=== PATIENT | male | born 1945 | race Caucasian/White ===

== ENCOUNTER → 2016-12-01 | Outpatient (CLI) | payer MEDICARE, OTHER | END | disposition home or self-care (01) | LOC: RAD.S 11-30 09:30 | DX: D58.2 Other hemoglobinopathies (principal); D75.1 Secondary polycythemia; K80.20 Calculus of gallbladder without cholecystitis without obstruction; K76.0 Fatty (change of) liver, not elsewhere classified; N28.1 Cyst of kidney, acquired; N20.0 Calculus of kidney; R93.422 Abnormal radiologic findings on diagnostic imaging of left kidney ==

== ENCOUNTER → 2016-12-05 | Outpatient (CLI) | payer MEDICARE, OTHER | END | disposition home or self-care (01) | LOC: RAD.S 12:59 | DX: N28.89 Other specified disorders of kidney and ureter (principal); D75.1 Secondary polycythemia; K80.20 Calculus of gallbladder without cholecystitis without obstruction; D35.01 Benign neoplasm of right adrenal gland; E27.8 Other specified disorders of adrenal gland; N28.1 Cyst of kidney, acquired ==

== ENCOUNTER → 2016-12-19 | Outpatient (CLI) | payer MEDICARE, OTHER | END | disposition home or self-care (01) | LOC: RAD.S 08:30 | DX: E27.8 Other specified disorders of adrenal gland (principal); D75.1 Secondary polycythemia ==